=== PATIENT | male | born 1980 | race American Indian/Alaskan Native ===

== ENCOUNTER 2017-02-21 04:09 | Emergency (ER) | payer MEDICAID ==
[2017-02-21 04:10] VITALS: BMI 65.1
--- NOTE | 2017-02-21 04:30 | C.PDOC ---
History Of Present Illness Patient is a 36 y/o male who presents to the ED with police for alleged agitated behavior. On arrival, patient admits to drinking alcohol this evening and states he will not be cooperative for medical evaluation and prefers to be restrained. Patient reports to be unaware as to why he was brought in; states he has a fever. No other physical complaints at this time. 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) Current Symptoms Are (Timing): Still Present Modifying Factor(s): Alcohol Associated Symptoms: Agitation Recent travel outside of the [place]: No Past Medical History Reviewed: Historical Data, Nursing Documentation, Vital Signs Vital Signs: Last Vital Signs Temp 98.4 F 02/21/17 06:00 Pulse 80 02/21/17 06:00 Resp 16 02/21/17 06:00 BP 113/73 02/21/17 06:00 Pulse Ox 97 02/21/17 06:00 - Medical History PMH: Asthma, Bipolar Disorder, Depression, Schizophrenia, Sleep Apnea Denies: Diabetes, Hepatitis, HIV, HTN, Chronic Kidney Disease, Seizures, Sexually Transmitted Disease Surgical History: No Surg Hx - [facility] Procedures GROUP PSYCHOTHERAPY (05/20/15) INDIVIDUAL PSYCHOTHERAPY, SUPPORTIVE (05/20/15) Family History: States: Unknown Family Hx - Social History Hx Tobacco Use: Yes Hx Alcohol Use: Yes Hx Substance Use: Yes - Immunization History Hx Tetanus Toxoid Vaccination: No Hx Influenza Vaccination: No Hx Pneumococcal Vaccination: No Review Of Systems Review Of Systems: ROS cannot be obtained secondary to pt's inabilty to answer questions. Physical Exam - Physical Exam Appears: Well, Non-toxic, No Acute Distress Skin: Normal Color, Warm, Dry, Other (no external evidence of trauma) Head: Atraumatic, Normacephalic Chest: Symmetrical, No Tenderness Cardiovascular: Rhythm Regular, No Murmur, Other (s1 and s2 WNL) Respiratory: Normal Breath Sounds, No Rales, No Rhonchi, No Wheezing Gastrointestinal/Abdominal: Soft, No Tenderness, Other (obese) Extremity: Normal ROM, No Deformity, Other (2+ pulses) Neurological/Psych: Oriented x3, No Normal Speech (slurred), Normal Cognition, Normal Motor, Normal Reflexes, Other (cooperative at times) ED Course And Treatment - Laboratory Results Result Diagrams: 02/21/17 06:40 02/21/17 06:40 Medical Decision Making Medical Decision Making: clinical impression: substance abuse violent behavior Plan: * Crisis notified * patient 1:1 * 4-point restraints placed on patient * to be released in stage-like fashion as sobriety increases * Pt seen by crisis who feels pt can be discharged.Dr Quinteros feels he is antisocial personality disorder,PCP intoxication.They will attemt to place him in a homeless halfway Disposition - Disposition Referrals: [facility] at [facility] [Outside] Disposition: HOME/ ROUTINE Disposition Time: 07:09 Condition: STABLE Instructions: Polysubstance Abuse (ED) Forms: [facility] (Slovak) - Scribe Statement The provider has reviewed the documentation as recorded by the Scribe Felipa Mars All medical record entries made by the Scribe were at my direction and personally dictated by me. I have reviewed the chart and agree that the record accurately reflects my personal performance of the history, physical exam, medical decision making, and the department course for this patient. I have also personally directed, reviewed, and agree with the discharge instructions and disposition.
[2017-02-21 06:22] VITALS: BP 113/73; PULSE 80; RESP 16; TEMP 98.4; O2SAT 97
[2017-02-21 06:43] LABS: BASO % 0.7 % (0.0-2.0); EOS % 0.6 % (0.0-4.0); HEMOGLOBIN 13.6 g/dL (12.0-18.0); LYMPH # 1.4 K/uL (1.0-4.3); LYMPH % 24.5 % (20.0-40.0); MEAN CELL VOLUME 97.1 fL (80.0-94.0); MEAN CORPUSCULAR HEMOGLOBIN 33.9 pg (27.0-31.0); MEAN CORPUSCULAR HGB CONC 34.9 g/dL (33.0-37.0); MONO # 0.4 K/uL (0.0-0.8); MONO % 7.5 % (0.0-10.0); NEUT # 3.7 K/uL (1.8-7.0); NEUT % 66.7 % (50.0-75.0); RBC 4.01 Mil/uL (4.40-5.90); WHITE BLOOD COUNT 5.6 K/uL (4.8-10.8)
[2017-02-21 06:49] LABS: SQUAMOUS EPITHIAL < 1 /hpf (0-5); URINE BILIRUBIN NEGATIVE (NEGATIVE); URINE BLOOD NEGATIVE (NEGATIVE); URINE CLARITY Clear (Clear); URINE COLOR Yellow (YELLOW); URINE GLUCOSE (UA) NORMAL (Normal); URINE LEUKOCYTE ESTERASE NEG Leu/uL (Negative); URINE NITRATE NEGATIVE (NEGATIVE); URINE PROTEIN NEGATIVE (NEGATIVE); URINE UROBILINOGEN NORMAL mg/dL (0.2-1.0)
[2017-02-21 07:00] LABS: ALB/GLOB RATIO 1.2 (1.0-2.1); ALBUMIN 4.1 g/dL (3.5-5.0); ALT/SGPT 43 U/L (21-72); AST/SGOT 86 U/L (17-59); BARBITURATES, UR NEGATIVE (NEGATIVE); BENZODIAZEPINES, UR NEGATIVE (NEGATIVE); BLOOD UREA NITROGEN 11 mg/dL (9-20); GFR AFRICAN-AMERICAN > 60; GFR NON-AFRICAN AMERICAN > 60; MAGNESIUM 1.9 mg/dL (1.6-2.3); OPIATES, UR NEGATIVE (NEGATIVE)
[2017-02-21 07:01] LABS: PHENCYCLIDINE, UR POSITIVE (NEGATIVE)
== END 2017-02-21 07:30 | disposition home or self-care (01) ==
LOC: C.ER 04:09
DX: F19.10 Other psychoactive substance abuse, uncomplicated (principal); R45.6 Violent behavior
CPT/HCPCS: 80053; 80320; 80324; 80345; 80346; 80349; 80353; 80358; 80361; 81001; 83735; 83992; 85025; 96372; 99283; J2060

== ENCOUNTER 2017-02-21 17:40 | Emergency (ER) | payer MEDICAID ==
[2017-02-21 17:40] VITALS: BMI 65.1
[2017-02-21 20:09] LABS: BASO % 0.6 % (0.0-2.0); EOS # 0.1 K/uL (0.0-0.7); EOS % 1.1 % (0.0-4.0); HEMOGLOBIN 12.8 g/dL (12.0-18.0); LYMPH # 1.9 K/uL (1.0-4.3); LYMPH % 35.4 % (20.0-40.0); MEAN CELL VOLUME 96.7 fL (80.0-94.0); MEAN CORPUSCULAR HEMOGLOBIN 33.4 pg (27.0-31.0); MEAN CORPUSCULAR HGB CONC 34.6 g/dL (33.0-37.0); MEAN PLATELET VOLUME 8.1 fL (7.2-11.7); MONO # 0.6 K/uL (0.0-0.8); NEUT # 2.7 K/uL (1.8-7.0); NEUT % 50.9 % (50.0-75.0); NRBC % 0.1 % (0.0-2.0); RBC 3.83 Mil/uL (4.40-5.90); WHITE BLOOD COUNT 5.3 K/uL (4.8-10.8)
[2017-02-21 20:27] LABS: ALB/GLOB RATIO 1.2 (1.0-2.1); ALBUMIN 3.9 g/dL (3.5-5.0); ALT/SGPT 45 U/L (21-72); AST/SGOT 115 U/L (17-59); BLOOD UREA NITROGEN 10 mg/dL (9-20); CALCIUM 8.5 mg/dl (8.6-10.4); GFR AFRICAN-AMERICAN > 60; GFR NON-AFRICAN AMERICAN > 60
[2017-02-21 20:36] LABS: ACETAMINOPHEN < 10.0 ug/mL (10.0-30.0); SALICYLATE < 1.0 mg/dL 1
[2017-02-21 22:45] LABS: URINE BACTERIA RARE (<OCC); URINE BILIRUBIN NEGATIVE (NEGATIVE); URINE BLOOD NEGATIVE (NEGATIVE); URINE CLARITY Clear (Clear); URINE COLOR Yellow (YELLOW); URINE GLUCOSE (UA) NORMAL (Normal); URINE LEUKOCYTE ESTERASE NEG Leu/uL (Negative); URINE NITRATE NEGATIVE (NEGATIVE); URINE PROTEIN NEGATIVE (NEGATIVE)
[2017-02-21 22:58] LABS: BARBITURATES, UR NEGATIVE (NEGATIVE); BENZODIAZEPINES, UR NEGATIVE (NEGATIVE); OPIATES, UR NEGATIVE (NEGATIVE)
[2017-02-21 23:20] LABS: PHENCYCLIDINE, UR POSITIVE (NEGATIVE)
--- NOTE | 2017-02-22 00:33 | C.PDOC ---
Time Seen by Provider: 02/21/17 17:56 Chief Complaint (Nursing): Psychiatric Evaluation History Per: Patient, EMS History/Exam Limitations: intoxication Onset/Duration Of Symptoms: Unknown Current Symptoms Are (Timing): Still Present Modifying Factor(s): Marijuana, Other (PCP) Severity: Moderate Associated Symptoms: Agitation Additional History Per: Prior Records Past Medical History Reviewed: Historical Data, Nursing Documentation, Vital Signs Vital Signs: Last Vital Signs Temp 97.9 F 02/21/17 17:44 Pulse 110 H 02/21/17 17:44 Resp 20 02/21/17 17:44 BP 173/123 H 02/21/17 17:44 Pulse Ox 99 02/22/17 00:33 - Medical History PMH: Asthma, Bipolar Disorder, Depression, HTN, Schizophrenia, Sleep Apnea - [facility] Procedures GROUP PSYCHOTHERAPY (05/20/15) INDIVIDUAL PSYCHOTHERAPY, SUPPORTIVE (05/20/15) Family History: States: Unknown Family Hx - Social History Hx Tobacco Use: Yes Hx Alcohol Use: Yes Hx Substance Use: Yes - Immunization History Hx Tetanus Toxoid Vaccination: No Hx Influenza Vaccination: No Hx Pneumococcal Vaccination: No Review Of Systems Review Of Systems: ROS cannot be obtained secondary to pt's inabilty to answer questions. (Pt is uncooperative) Physical Exam - Physical Exam Appears: Agitated Skin: Normal Color, Warm, Dry, No Rash Head: Atraumatic, Normacephalic Eye(s): bilateral: PERRL, Other (Nystagmus) Neck: Normal ROM, No Midline Cervical Tenderness, No Step Off Deformity, Supple Cardiovascular: Rhythm Regular Respiratory: Normal Breath Sounds, No Accessory Muscle Use Gastrointestinal/Abdominal: Soft, No Tenderness Extremity: Normal ROM Neurological/Psych: Inappropriate Response To Command, Other (Moving all extremities) ED Course And Treatment - Laboratory Results Result Diagrams: 02/21/17 20:04 02/21/17 20:04 Lab Interpretation: No Acute Changes O2 Sat by Pulse Oximetry: 99 Pulse Ox Interpretation: Normal Progress Note: Pt is medically stable for psychiatric evaluation and/or admission. Pt was evaluated by the coating line worker who d/w Dr. Rodrigues. They requested that pt be medicated with an antipsychotic. Disposition - Disposition Disposition Time: 00:54 Condition: STABLE - Clinical Impression Clinical Impression: PCP (phencyclidine) abuse, Agitation Physician Patient Turnover Patient Signed Over To: Sapira,Valdi Handoff Comments: to reassess and dispo pt after meds.
[2017-02-22 03:49] VITALS: RESP 18; O2SAT 99
[2017-02-22 05:27] VITALS: BP 120/74; PULSE 89; TEMP 98.1
== END 2017-02-22 05:30 | disposition home or self-care (01) ==
LOC: C.ER 17:40
DX: F16.10 Hallucinogen abuse, uncomplicated (principal); R45.1 Restlessness and agitation
CPT/HCPCS: 80053; 80320; 80324; 80329; 80345; 80346; 80349; 80353; 80358; 80361; 81001; 83992; 85025; 96372; 99285; J2060; J3486

== ENCOUNTER 2017-02-23 20:42 | Emergency (ER) | payer MEDICAID ==
[2017-02-23 20:43] VITALS: BMI 65.1
[2017-02-23 20:47] VITALS: RESP 20
--- NOTE | 2017-02-23 20:59 | C.PDOC ---
History Of Present Illness 36 y/o male brought by EMS to the ER for PCP use. Patient admits that he used PCP today. Patient states that he is paranoid. Of note, patient has visited [facility] many times in the past for PCP use. Chief Complaint (Nursing): Substance Abuse History Per: Patient History/Exam Limitations: no limitations Past Medical History Reviewed: Historical Data, Nursing Documentation, Vital Signs Vital Signs: Last Vital Signs Temp 98.2 F 02/23/17 20:45 Pulse 91 H 02/23/17 20:45 Resp 20 02/23/17 20:45 BP 124/89 02/23/17 20:45 Pulse Ox 100 02/23/17 21:01 - Medical History PMH: Asthma, Bipolar Disorder, Depression, HTN, Schizophrenia, Sleep Apnea Denies: Diabetes, Hepatitis, HIV, Chronic Kidney Disease, Seizures, Sexually Transmitted Disease Surgical History: No Surg Hx - [facility] Procedures GROUP PSYCHOTHERAPY (05/20/15) INDIVIDUAL PSYCHOTHERAPY, SUPPORTIVE (05/20/15) Family History: States: No Known Family Hx - Social History Hx Tobacco Use: Yes Hx Alcohol Use: Yes Hx Substance Use: Yes - Immunization History Hx Tetanus Toxoid Vaccination: No Hx Influenza Vaccination: No Hx Pneumococcal Vaccination: No Review Of Systems Except As Marked, All Systems Reviewed And Found Negative. Physical Exam - Physical Exam Appears: No Acute Distress Skin: Normal Color, Warm Head: Atraumatic, Normacephalic Eye(s): bilateral: Normal Inspection, PERRL Nose: Normal Oral Mucosa: Moist Neck: Supple Chest: Symmetrical Cardiovascular: Rhythm Regular Respiratory: Normal Breath Sounds, No Accessory Muscle Use Extremity: Normal ROM Neurological/Psych: Oriented x3, Normal Speech, Normal Cognition, Normal Motor, Normal Sensation ED Course And Treatment - Laboratory Results Result Diagrams: 02/23/17 21:07 02/23/17 21:33 O2 Sat by Pulse Oximetry: 100 (RA) Pulse Ox Interpretation: Normal Medical Decision Making Medical Decision Making: Plan: --Labs --Urinalysis Disposition Counseled Patient/Family Regarding: Diagnosis - Disposition Referrals: [facility] at [facility] [Outside] Disposition: HOME/ ROUTINE Disposition Time: 23:38 Condition: STABLE Instructions: Polysubstance Abuse (ED) Forms: [facility] (Tamazight) - POA Present On Arrival: None - Clinical Impression Clinical Impression: Substance abuse - Scribe Statement The provider has reviewed the documentation as recorded by the Mitzyibshari Herman Provider Attestation: All medical record entries made by the Mitzyibe were at my direction and personally dictated by me. I have reviewed the chart and agree that the record accurately reflects my personal performance of the history, physical exam, medical decision making, and the department course for this patient. I have also personally directed, reviewed, and agree with the discharge instructions and disposition.
[2017-02-23 21:15] LABS: BASO % 0.5 % (0.0-2.0); EOS # 0.1 K/uL (0.0-0.7); EOS % 1.1 % (0.0-4.0); LYMPH # 2.1 K/uL (1.0-4.3); LYMPH % 43.5 % (20.0-40.0); MEAN CELL VOLUME 97.9 fL (80.0-94.0); MEAN CORPUSCULAR HEMOGLOBIN 33.5 pg (27.0-31.0); MEAN CORPUSCULAR HGB CONC 34.2 g/dL (33.0-37.0); MEAN PLATELET VOLUME 8.3 fL (7.2-11.7); MONO # 0.7 K/uL (0.0-0.8); MONO % 14.1 % (0.0-10.0); NEUT % 40.8 % (50.0-75.0); NRBC % 0.1 % (0.0-2.0); RBC 3.88 Mil/uL (4.40-5.90); WHITE BLOOD COUNT 4.9 K/uL (4.8-10.8)
[2017-02-23 21:25] LABS: URINE BILIRUBIN NEGATIVE (NEGATIVE); URINE BLOOD NEGATIVE (NEGATIVE); URINE CLARITY Clear (Clear); URINE COLOR Yellow (YELLOW); URINE GLUCOSE (UA) NORMAL (Normal); URINE LEUKOCYTE ESTERASE NEG Leu/uL (Negative); URINE NITRATE NEGATIVE (NEGATIVE); URINE PROTEIN NEGATIVE (NEGATIVE)
[2017-02-23 21:36] LABS: BARBITURATES, UR NEGATIVE (NEGATIVE); BENZODIAZEPINES, UR NEGATIVE (NEGATIVE); OPIATES, UR NEGATIVE (NEGATIVE)
[2017-02-23 21:54] LABS: PHENCYCLIDINE, UR POSITIVE (NEGATIVE)
[2017-02-23 21:54] LABS: ALB/GLOB RATIO 1.2 (1.0-2.1); ALBUMIN 4.3 g/dL (3.5-5.0); ALT/SGPT 66 U/L (21-72); AST/SGOT 140 U/L (17-59); BLOOD UREA NITROGEN 8 mg/dL (9-20); CALCIUM 9.4 mg/dl (8.6-10.4); GFR AFRICAN-AMERICAN > 60; GFR NON-AFRICAN AMERICAN > 60
[2017-02-23 23:57] VITALS: BP 126/74; PULSE 68; TEMP 97.2; O2SAT 96
== END 2017-02-23 23:54 | disposition home or self-care (01) ==
LOC: C.ER 20:42
DX: F19.10 Other psychoactive substance abuse, uncomplicated (principal)

== ENCOUNTER 2017-02-25 19:37 | Emergency (ER) | payer MEDICAID ==
[2017-02-25 19:37] VITALS: BMI 65.1
[2017-02-25 20:50] LABS: BASO # 0.1 K/uL (0.0-0.2); BASO % 1.1 % (0.0-2.0); EOS # 0.1 K/uL (0.0-0.7); EOS % 1.4 % (0.0-4.0); HEMOGLOBIN 12.8 g/dL (12.0-18.0); LYMPH # 2.2 K/uL (1.0-4.3); LYMPH % 42.8 % (20.0-40.0); MEAN CELL VOLUME 98.4 fL (80.0-94.0); MEAN CORPUSCULAR HEMOGLOBIN 33.9 pg (27.0-31.0); MEAN CORPUSCULAR HGB CONC 34.4 g/dL (33.0-37.0); MEAN PLATELET VOLUME 8.4 fL (7.2-11.7); MONO # 0.6 K/uL (0.0-0.8); MONO % 11.5 % (0.0-10.0); NEUT # 2.3 K/uL (1.8-7.0); NEUT % 43.2 % (50.0-75.0); NRBC % 0.1 % (0.0-2.0); RBC 3.77 Mil/uL (4.40-5.90); RED CELL DISTRIBUTION WIDTH 13.2 % (11.5-14.5); WHITE BLOOD COUNT 5.2 K/uL (4.8-10.8)
[2017-02-25 20:54] LABS: URINE BACTERIA RARE (<OCC); URINE BILIRUBIN NEGATIVE (NEGATIVE); URINE BLOOD NEGATIVE (NEGATIVE); URINE CLARITY Clear (Clear); URINE COLOR Yellow (YELLOW); URINE GLUCOSE (UA) NORMAL (Normal); URINE LEUKOCYTE ESTERASE NEG Leu/uL (Negative); URINE NITRATE NEGATIVE (NEGATIVE); URINE PROTEIN NEGATIVE (NEGATIVE)
[2017-02-25 21:02] LABS: ACETAMINOPHEN < 10.0 ug/mL (10.0-30.0); SALICYLATE < 1.0 mg/dL 1
[2017-02-25 21:04] LABS: ALB/GLOB RATIO 1.2 (1.0-2.1); ALT/SGPT 59 U/L (21-72); AST/SGOT 63 U/L (17-59); BLOOD UREA NITROGEN 10 mg/dL (9-20); CALCIUM 9.1 mg/dl (8.6-10.4); GFR AFRICAN-AMERICAN > 60; GFR NON-AFRICAN AMERICAN > 60
[2017-02-25 21:07] LABS: BARBITURATES, UR NEGATIVE (NEGATIVE); BENZODIAZEPINES, UR NEGATIVE (NEGATIVE); OPIATES, UR NEGATIVE (NEGATIVE); PHENCYCLIDINE, UR POSITIVE (NEGATIVE)
--- NOTE | 2017-02-25 22:46 | C.PDOC ---
Time Seen by Provider: 02/25/17 20:31 Chief Complaint (Nursing): Psychiatric Evaluation History Per: Patient, EMS History/Exam Limitations: clinical condition, intoxication Onset/Duration Of Symptoms: Days Current Symptoms Are (Timing): Still Present Suicide/Self Injury Attempted (Context): None Modifying Factor(s): Marijuana, Other (PCP) Severity: Moderate Associated Symptoms: Suicidal Thoughts Additional History Per: Prior Records Past Medical History Reviewed: Historical Data, Nursing Documentation, Vital Signs Vital Signs: Last Vital Signs Temp 97.6 F 02/25/17 19:45 Pulse 70 02/25/17 19:45 Resp 20 02/25/17 19:45 BP 102/68 02/25/17 19:45 Pulse Ox 99 02/25/17 22:47 - Medical History PMH: Asthma, Bipolar Disorder, Depression, HTN, Schizophrenia, Sleep Apnea - [facility] Procedures GROUP PSYCHOTHERAPY (05/20/15) INDIVIDUAL PSYCHOTHERAPY, SUPPORTIVE (05/20/15) Family History: States: Unknown Family Hx - Social History Hx Tobacco Use: Yes Hx Alcohol Use: Yes Hx Substance Use: Yes - Immunization History Hx Tetanus Toxoid Vaccination: No Hx Influenza Vaccination: No Hx Pneumococcal Vaccination: No Review Of Systems Constitutional: Negative for: Fever Cardiovascular: Negative for: Chest Pain Respiratory: Negative for: Shortness of Breath Gastrointestinal: Negative for: Vomiting, Abdominal Pain Musculoskeletal: Negative for: Neck Pain Neurological: Negative for: Weakness, Numbness Physical Exam - Physical Exam Appears: Non-toxic, No Acute Distress Skin: Normal Color, Warm, Dry Head: Atraumatic Eye(s): bilateral: PERRL Neck: Normal ROM, Supple Cardiovascular: Rhythm Regular Respiratory: Normal Breath Sounds, No Accessory Muscle Use Gastrointestinal/Abdominal: Soft, No Tenderness Extremity: Normal ROM Neurological/Psych: Oriented x3, Normal Motor, Normal Sensation ED Course And Treatment - Laboratory Results Result Diagrams: 02/25/17 20:46 02/25/17 20:46 Lab Interpretation: No Acute Changes O2 Sat by Pulse Oximetry: 99 Pulse Ox Interpretation: Normal Progress Note: Pt is medically stable for psychiatric evaluation and/or admission. 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
[2017-02-26 06:44] VITALS: BP 124/64; PULSE 61; RESP 20; TEMP 97.8; O2SAT 100
== END 2017-02-26 07:05 | disposition home or self-care (01) ==
LOC: C.ER 19:37
DX: F16.10 Hallucinogen abuse, uncomplicated (principal); R45.851 Suicidal ideations
CPT/HCPCS: 80053; 80164; 80178; 80320; 80324; 80329; 80345; 80346; 80349; 80353; 80358; 80361; 81001; 83992; 85025; 96372; 99285; J2060; J3486

== ENCOUNTER 2017-03-05 04:11 | Emergency (ER) | payer MEDICAID ==
[2017-03-05 04:12] VITALS: BMI 65.1
[2017-03-05 04:44] VITALS: RESP 16; TEMP 98; O2SAT 98
--- NOTE | 2017-03-05 04:56 | C.PDOC ---
History Of Present Illness Patient is a 36 y/o male who presents to the ED stating that he is homeless and need a place to sleep. Denies any drug use today. Pleasant and cooperative. Denies any suicidal or homicidal ideation. No other physical complaints at this time. Time Seen by Provider: 03/05/17 04:53 Chief Complaint (Nursing): Pain, Chronic History Per: Patient History/Exam Limitations: no limitations Onset/Duration Of Symptoms: Days Current Symptoms Are (Timing): Still Present Severity: None Reports Recently: Seen In ED, Treated By A Physician Recent travel outside of the [place] States: No Past Medical History Reviewed: Historical Data, Nursing Documentation, Vital Signs Vital Signs: Last Vital Signs Temp 98 F 03/05/17 04:42 Pulse 70 03/05/17 04:42 Resp 16 03/05/17 04:42 BP 140/80 03/05/17 04:42 Pulse Ox 98 03/05/17 05:08 - Medical History PMH: Asthma, Bipolar Disorder, Depression, HTN, Schizophrenia, Sleep Apnea Denies: Diabetes, Hepatitis, HIV, Chronic Kidney Disease, Seizures, Sexually Transmitted Disease Surgical History: No Surg Hx - [facility] Procedures GROUP PSYCHOTHERAPY (05/20/15) INDIVIDUAL PSYCHOTHERAPY, SUPPORTIVE (05/20/15) Family History: States: No Known Family Hx - Social History Hx Tobacco Use: Yes Hx Alcohol Use: Yes Hx Substance Use: Yes - Immunization History Hx Tetanus Toxoid Vaccination: No Hx Influenza Vaccination: No Hx Pneumococcal Vaccination: No Review Of Systems Constitutional: Negative for: Fever, Chills Cardiovascular: Negative for: Chest Pain Respiratory: Negative for: Shortness of Breath Gastrointestinal: Negative for: Abdominal Pain Neurological: Negative for: Weakness Psych: Negative for: Suicidal ideation Physical Exam - Physical Exam Appears: Non-toxic, No Acute Distress Skin: Warm, Dry Head: Normacephalic Eye(s): bilateral: Normal Inspection Oral Mucosa: Moist Neck: Supple Cardiovascular: Rhythm Regular Respiratory: No Rales, No Rhonchi Gastrointestinal/Abdominal: No Tenderness Extremity: Normal ROM Neurological/Psych: Oriented x3, Normal Speech Gait: Steady ED Course And Treatment O2 Sat by Pulse Oximetry: 98 Pulse Ox Interpretation: Normal Progress Note: Patient under ED obs until morning. list of homeless shelters given Reevaluation Time: 06:15 Reassessment Condition: Improved Disposition Counseled Patient/Family Regarding: Studies Performed, Diagnosis, Need For Followup - Disposition Referrals: [facility] at [facility] [Outside] Disposition: HOME/ ROUTINE Disposition Time: 04:57 Condition: FAIR Forms: [facility] (Sami), General Discharge Instructions - Clinical Impression Clinical Impression: Polysubstance abuse - Scribe Statement The provider has reviewed the documentation as recorded by the Scribe Felipa Mars All medical record entries made by the Scribe were at my direction and personally dictated by me. I have reviewed the chart and agree that the record accurately reflects my personal performance of the history, physical exam, medical decision making, and the department course for this patient. I have also personally directed, reviewed, and agree with the discharge instructions and disposition.
[2017-03-05 06:38] VITALS: BP 130/80; PULSE 75
== END 2017-03-05 06:37 | disposition home or self-care (01) ==
LOC: C.ER 04:11
DX: F19.10 Other psychoactive substance abuse, uncomplicated (principal); Z59.0 Homelessness; I10 Essential (primary) hypertension; F20.9 Schizophrenia, unspecified; Z72.0 Tobacco use

== ENCOUNTER 2017-03-24 06:02 | Emergency (ER) | payer MEDICAID ==
[2017-03-24 06:02] VITALS: BMI 25.1
[2017-03-24 06:12] VITALS: BP 124/73; PULSE 90; RESP 16; TEMP 97.9; O2SAT 98
--- NOTE | 2017-03-24 07:50 | C.PDOC ---
History Of Present Illness 36 y/o male presents to the ER requesting Detox from alcohol, methadon, crystal meth, PCP, and marijuana. Patient has no medical complaints at this time. Time Seen by Provider: 03/24/17 07:32 Chief Complaint (Nursing): Substance Abuse History Per: Patient History/Exam Limitations: no limitations Past Medical History Reviewed: Historical Data, Nursing Documentation, Vital Signs Vital Signs: Last Vital Signs Temp 97.9 F 03/24/17 06:10 Pulse 90 03/24/17 06:10 Resp 16 03/24/17 06:10 BP 124/73 03/24/17 06:10 Pulse Ox 98 03/24/17 08:26 - Medical History PMH: Asthma, Bipolar Disorder, Depression, HTN, Schizophrenia, Sleep Apnea Denies: Diabetes, Hepatitis, HIV, Chronic Kidney Disease, Seizures, Sexually Transmitted Disease Other Surgeries: Hx of surgeries - [facility] Procedures GROUP PSYCHOTHERAPY (05/20/15) INDIVIDUAL PSYCHOTHERAPY, SUPPORTIVE (05/20/15) Family History: States: No Known Family Hx - Social History Hx Tobacco Use: Yes Hx Alcohol Use: Yes Hx Substance Use: Yes (PCP) - Immunization History Hx Tetanus Toxoid Vaccination: No Hx Influenza Vaccination: No Hx Pneumococcal Vaccination: No Review Of Systems Except As Marked, All Systems Reviewed And Found Negative. Physical Exam - Physical Exam Appears: No Acute Distress Skin: Normal Color, Warm Head: Atraumatic, Normacephalic Eye(s): bilateral: Normal Inspection Nose: Normal Oral Mucosa: Moist Neck: Supple Chest: Symmetrical Cardiovascular: Rhythm Regular Respiratory: Normal Breath Sounds, No Accessory Muscle Use, No Rales, No Rhonchi , No Wheezing Extremity: Normal ROM Neurological/Psych: Oriented x3, Normal Speech, Normal Motor, Normal Sensation ED Course And Treatment O2 Sat by Pulse Oximetry: 98 (RA) Pulse Ox Interpretation: Normal Progress Note: dust box worker Vasiliy spoke to the patient and explained to him that there are no Detox beds availabe at this moment. Patient was given referral for outpatient detox and list of outpatient detox facilities. Disposition - Disposition Disposition: HOME/ ROUTINE Disposition Time: 07:49 Condition: STABLE Additional Instructions: Follow up in Outpatient detox as instructed. Return to ED if feel worse. 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 - Scribe Statement The provider has reviewed the documentation as recorded by the Scribe Kate Herman Provider Attestation All medical record entries made by the Humberto were at my direction and personally dictated by me. I have reviewed the chart and agree that the record accurately reflects my personal performance of the history, physical exam, medical decision making, and the department course for this patient. I have also personally directed, reviewed, and agree with the discharge instructions and disposition.
== END 2017-03-24 08:06 | disposition home or self-care (01) ==
LOC: C.ER 06:02
DX: F19.10 Other psychoactive substance abuse, uncomplicated (principal)

== ENCOUNTER 2017-04-03 04:48 | Emergency (ER) | payer MEDICAID ==
[2017-04-03 04:49] VITALS: BMI 25.1
[2017-04-03 05:02] VITALS: BP 148/89; PULSE 84; RESP 20; TEMP 98; O2SAT 98
--- NOTE | 2017-04-03 05:38 | C.PDOC ---
History Of Present Illness 36 year old male presents to the ED for psychiatric evaluation. Patient initially reports that he has been noncompliant with his psych medications for the past 6 months. However, patient admits to nursing staff that he took an ambulance to [facility] because he knew he would be able to take a shower here. Shortly after stating this, the patient locked himself in the bathroom. Patient refusing to be examined. He denies suicidal or homicidal ideation. Time Seen by Provider: 04/03/17 05:34 Chief Complaint (Nursing): Psychiatric Evaluation History Per: Patient History/Exam Limitations: other (Refusing to be examined) Onset/Duration Of Symptoms: Unknown Past Medical History Reviewed: Historical Data, Nursing Documentation, Vital Signs Vital Signs: Last Vital Signs Temp 98 F 04/03/17 04:55 Pulse 84 04/03/17 04:55 Resp 20 04/03/17 04:55 BP 148/89 04/03/17 04:55 Pulse Ox 98 04/03/17 05:46 - Medical History PMH: Asthma, Bipolar Disorder, Depression, HTN, Schizophrenia, Sleep Apnea Denies: Diabetes, Hepatitis, HIV, Chronic Kidney Disease, Seizures, Sexually Transmitted Disease - [facility] Procedures GROUP PSYCHOTHERAPY (05/20/15) INDIVIDUAL PSYCHOTHERAPY, SUPPORTIVE (05/20/15) Family History: States: No Known Family Hx - Social History Hx Tobacco Use: Yes Hx Alcohol Use: Yes Hx Substance Use: Yes (PCP) - Immunization History Hx Tetanus Toxoid Vaccination: No Hx Influenza Vaccination: No Hx Pneumococcal Vaccination: No Review Of Systems Review Of Systems: ROS cannot be obtained secondary to pt's inabilty to answer questions. (Patient refusing to answer questions/be examined) ED Course And Treatment O2 Sat by Pulse Oximetry: 98 Pulse Ox Interpretation: Normal Progress Note: Patient refusing to be examined. Disposition Counseled Patient/Family Regarding: Need For Followup - Disposition Referrals: [facility] at [facility] [Outside] Disposition: HOME/ ROUTINE Disposition Time: 06:09 Condition: FAIR Forms: [facility] (Maltese), General Discharge Instructions - Clinical Impression Clinical Impression: Malingering - Scribe Statement The provider has reviewed the documentation as recorded by the Scribe (Pro Mccoy) Provider Attestation: All medical record entries made by the Scribe were at my direction and personally dictated by me. I have reviewed the chart and agree that the record accurately reflects my personal performance of the history, physical exam, medical decision making, and the department course for this patient. I have also personally directed, reviewed, and agree with the discharge instructions and disposition.
== END 2017-04-03 06:15 | disposition home or self-care (01) ==
LOC: C.ER 04:48
DX: Z76.5 Malingerer [conscious simulation] (principal); I10 Essential (primary) hypertension; Z72.0 Tobacco use

== ENCOUNTER 2017-07-11 23:38 | Emergency (ER) | payer MEDICAID ==
[2017-07-11 23:38] VITALS: BMI 41.2
[2017-07-11 23:51] VITALS: BP 101/67; PULSE 79; RESP 16; TEMP 98.7; O2SAT 97
--- NOTE | 2017-07-12 00:10 | C.PDOC ---
History Of Present Illness 36 year old male presents to the ED requesting detox for PCP abuse. Patient was seen earlier today at [facility] with similar complaints. Patient was informed that no detox beds were available, patient refused to be examined and left. Time Seen by Provider: 07/12/17 00:09 Chief Complaint (Nursing): Substance Abuse History Per: Patient History/Exam Limitations: no limitations Onset/Duration Of Symptoms: Hrs Current Symptoms Are (Timing): Still Present Suicide/Self Injury Attempted (Context): None Modifying Factor(s): Other (PCP) Associated Symptoms: denies: Depression, Suicidal Thoughts, Suicidal Plan Recent travel outside of the [place]: No Additional History Per: Patient Past Medical History Reviewed: Historical Data, Nursing Documentation, Vital Signs Vital Signs: Last Vital Signs Temp 98.7 F 07/11/17 23:49 Pulse 79 07/11/17 23:49 Resp 16 07/11/17 23:49 BP 101/67 07/11/17 23:49 Pulse Ox 97 07/12/17 00:10 - Medical History PMH: Asthma, Bipolar Disorder, Depression, HTN, Schizophrenia, Sleep Apnea Denies: Diabetes, Hepatitis, HIV, Chronic Kidney Disease, Seizures, Sexually Transmitted Disease Surgical History: No Surg Hx - [facility] Procedures GROUP PSYCHOTHERAPY (05/20/15) INDIVIDUAL PSYCHOTHERAPY, SUPPORTIVE (05/20/15) Family History: States: Unknown Family Hx - Social History Hx Tobacco Use: Yes Hx Alcohol Use: Yes Hx Substance Use: Yes (PCP) - Immunization History Hx Tetanus Toxoid Vaccination: No Hx Influenza Vaccination: No Hx Pneumococcal Vaccination: No Review Of Systems Constitutional: Negative for: Fever, Chills Cardiovascular: Negative for: Chest Pain Respiratory: Negative for: Shortness of Breath Gastrointestinal: Negative for: Nausea, Vomiting Psych: Negative for: Depression, Suicidal ideation Physical Exam - Physical Exam Appears: Non-toxic, No Acute Distress Skin: Warm, Dry, Other (no external signs of trauma) Head: Normacephalic Eye(s): bilateral: Normal Inspection Neck: Supple Chest: Symmetrical Extremity: Bilateral: Atraumatic, Normal ROM Neurological/Psych: Oriented x3, Normal Speech Gait: Steady Additional Physical Exam Comments: Upon learning no detox beds were available patient refused examination and left the ED ED Course And Treatment O2 Sat by Pulse Oximetry: 97 (ON RA) Pulse Ox Interpretation: Normal Disposition Counseled Patient/Family Regarding: Studies Performed, Diagnosis, Need For Followup - Disposition Referrals: [facility] [Outside] Disposition: HOME/ ROUTINE Disposition Time: 00:09 Condition: FAIR Instructions: Polysubstance Abuse (DC) Forms: [facility] (Croatian) - Clinical Impression Clinical Impression: Drug abuse - Scribe Statement The provider has reviewed the documentation as recorded by the Scribe Nathan Chowdary All medical record entries made by the Scribe were at my direction and personally dictated by me. I have reviewed the chart and agree that the record accurately reflects my personal performance of the history, physical exam, medical decision making, and the department course for this patient. I have also personally directed, reviewed, and agree with the discharge instructions and disposition.
== END 2017-07-12 00:09 | disposition home or self-care (01) ==
LOC: C.ER 23:38
DX: F19.10 Other psychoactive substance abuse, uncomplicated (principal)

== ENCOUNTER 2017-08-14 01:18 | Emergency (ER) | payer MEDICAID ==
[2017-08-14 01:18] VITALS: BMI 41.2
[2017-08-14 02:22] LABS: BASO % 0.3 % (0.0-2.0); HEMOGLOBIN 12.4 g/dL (12.0-18.0); LYMPH # 1.4 K/uL (1.0-4.3); LYMPH % 30.2 % (20.0-40.0); MEAN CELL VOLUME 98.9 fL (80.0-94.0); MEAN CORPUSCULAR HEMOGLOBIN 34.5 pg (27.0-31.0); MEAN CORPUSCULAR HGB CONC 34.9 g/dL (33.0-37.0); MEAN PLATELET VOLUME 8.1 fL (7.2-11.7); MONO # 0.6 K/uL (0.0-0.8); MONO % 13.8 % (0.0-10.0); NEUT # 2.5 K/uL (1.8-7.0); NEUT % 54.7 % (50.0-75.0); NRBC % 0.1 % (0.0-2.0); RBC 3.59 Mil/uL (4.40-5.90); RED CELL DISTRIBUTION WIDTH 13.7 % (11.5-14.5); WHITE BLOOD COUNT 4.6 K/uL (4.8-10.8)
[2017-08-14 02:24] LABS: URINE BILIRUBIN NEGATIVE (NEGATIVE); URINE BLOOD NEGATIVE (NEGATIVE); URINE CLARITY Clear (Clear); URINE COLOR Yellow (YELLOW); URINE GLUCOSE (UA) NORMAL (Normal); URINE LEUKOCYTE ESTERASE NEG Leu/uL (Negative); URINE PROTEIN NEGATIVE (NEGATIVE)
[2017-08-14 02:36] LABS: ALB/GLOB RATIO 1.2 (1.0-2.1); ALBUMIN 3.6 g/dL (3.5-5.0); ALT/SGPT 31 U/L (21-72); AST/SGOT 28 U/L (17-59); BLOOD UREA NITROGEN 8 mg/dL (9-20); CALCIUM 8.8 mg/dl (8.6-10.4); GFR AFRICAN-AMERICAN > 60; GFR NON-AFRICAN AMERICAN > 60
[2017-08-14 02:38] LABS: BARBITURATES, UR NEGATIVE (NEGATIVE); BENZODIAZEPINES, UR NEGATIVE (NEGATIVE); OPIATES, UR NEGATIVE (NEGATIVE)
[2017-08-14 02:42] LABS: PHENCYCLIDINE, UR POSITIVE (NEGATIVE)
--- NOTE | 2017-08-14 03:05 | C.PDOC ---
History Of Present Illness 37 year old male presents to the ED for evaluation. Patient reports feeling depressed and thinking about hurting himself. Patient has no specific plans. Patient denies HI, hallucinations, CP, SOB, abd pain. Time Seen by Provider: 08/14/17 02:07 Chief Complaint (Nursing): Psychiatric Evaluation History Per: Patient History/Exam Limitations: no limitations Onset/Duration Of Symptoms: Hrs Current Symptoms Are (Timing): Still Present Suicide/Self Injury Attempted (Context): None Associated Symptoms: Depression, Suicidal Thoughts. denies: Suicidal Plan Involuntary Hold By: None Recent travel outside of the [place]: No Additional History Per: Patient, EMS Past Medical History Reviewed: Historical Data, Nursing Documentation, Vital Signs Vital Signs: Last Vital Signs Temp 98.5 F 08/14/17 03:38 Pulse 82 08/14/17 03:38 Resp 14 08/14/17 03:38 BP 130/72 08/14/17 03:38 Pulse Ox 95 08/14/17 05:06 - Medical History PMH: Asthma, Bipolar Disorder, Depression, HTN, Schizophrenia, Sleep Apnea Denies: Diabetes, Hepatitis, HIV, Chronic Kidney Disease, Seizures, Sexually Transmitted Disease Surgical History: No Surg Hx - [facility] Procedures GROUP PSYCHOTHERAPY (05/20/15) INDIVIDUAL PSYCHOTHERAPY, SUPPORTIVE (05/20/15) Family History: States: Unknown Family Hx - Social History Hx Tobacco Use: Yes Hx Alcohol Use: Yes Hx Substance Use: Yes (PCP) - Immunization History Hx Tetanus Toxoid Vaccination: No Hx Influenza Vaccination: No Hx Pneumococcal Vaccination: No Review Of Systems Constitutional: Negative for: Fever, Chills Cardiovascular: Negative for: Chest Pain, Palpitations Gastrointestinal: Negative for: Nausea, Vomiting Skin: Negative for: Rash Psych: Positive for: Depression, Suicidal ideation Physical Exam - Physical Exam Appears: Non-toxic, No Acute Distress Skin: Normal Color, Warm, Dry Head: Atraumatic, Normacephalic Eye(s): bilateral: Normal Inspection Oral Mucosa: Moist Neck: Normal ROM, Supple Chest: Symmetrical Cardiovascular: Rhythm Regular Respiratory: Normal Breath Sounds, No Rales, No Rhonchi, No Wheezing Gastrointestinal/Abdominal: Soft, No Tenderness, No Guarding, No Rebound Extremity: Normal ROM, No Tenderness, No Swelling Neurological/Psych: Oriented x3, Normal Speech Gait: Steady ED Course And Treatment - Laboratory Results Result Diagrams: 08/14/17 02:19 08/14/17 02:19 O2 Sat by Pulse Oximetry: 95 (On RA) Pulse Ox Interpretation: Normal Progress Note: Pt is medically cleared for psych. Pt was screened by [facility] crisis counselor and case reviewed by Dr Inman - space operations psych who recommended that due to pt frequent visits to this ED and other [facility] ED, and h/o of PCP use leading to violent behavior towards staff in the past- pt does not meet the criteria for admission at this time. Pt was informed of this by crisis and was d /c from ED with no complications. Pt will follow up in clini or with pMD Disposition Counseled Patient/Family Regarding: Diagnosis, Need For Followup - Disposition Referrals: [facility] [Outside] Disposition: HOME/ ROUTINE Disposition Time: 03:23 Condition: STABLE Instructions: Drug Abuse and Drug Addiction (DC) Forms: [employer] (Bermudian) - Clinical Impression Clinical Impression: Schizophrenia, Cannabis abuse, Homelessness - PA / RESIDENTIAL FINISH CARPENTER / Resident Statement MD/DO has reviewed & agrees with the documentation as recorded. - Scribe Statement The provider has reviewed the documentation as recorded by the Scribe Nathan Chowdary All medical record entries made by the Scribe were at my direction and personally dictated by me. I have reviewed the chart and agree that the record accurately reflects my personal performance of the history, physical exam, medical decision making, and the department course for this patient. I have also personally directed, reviewed, and agree with the discharge instructions and disposition.
[2017-08-14 03:41] VITALS: BP 130/72; PULSE 82; RESP 14; TEMP 98.5
[2017-08-14 05:06] VITALS: O2SAT 95
== END 2017-08-14 03:41 | disposition home or self-care (01) ==
LOC: C.ER 01:18
DX: F20.9 Schizophrenia, unspecified (principal); F12.10 Cannabis abuse, uncomplicated; Z59.0 Homelessness

== ENCOUNTER 2017-08-14 05:08 | Emergency (ER) | payer MEDICAID ==
[2017-08-14 05:08] VITALS: BMI 41.2
[2017-08-14 05:31] VITALS: BP 102/62; PULSE 98; RESP 16; TEMP 98.5; O2SAT 97
--- NOTE | 2017-08-14 05:44 | C.PDOC ---
History Of Present Illness 37 year old male presents to the ED for the second time today. Patient states he returns to the ED because he was not return all of his properties. Patient refused to be examined and seen by crisis. Patient initially states he was here for suicidal ideations but admits smoking PCP. Patient states his PCP use does not affect his suicidal ideations. Patient is very argumentative and confrontational. Patient does not allow for further questioning, refused examination. Chief Complaint (Nursing): Psychiatric Evaluation History Per: Patient History/Exam Limitations: intoxication Onset/Duration Of Symptoms: Hrs Current Symptoms Are (Timing): Still Present Suicide/Self Injury Attempted (Context): None Modifying Factor(s): Other (PCP) Associated Symptoms: Anger, Agitation, Suicidal Thoughts Recent travel outside of the [place]: No Additional History Per: Patient, EMS Past Medical History Reviewed: Historical Data, Nursing Documentation, Vital Signs Vital Signs: Last Vital Signs Temp 98.5 F 08/14/17 05:09 Pulse 98 H 08/14/17 05:09 Resp 16 08/14/17 05:09 BP 102/62 08/14/17 05:09 Pulse Ox 97 08/14/17 05:46 - Medical History PMH: Asthma, Bipolar Disorder, Depression, HTN, Schizophrenia, Sleep Apnea Denies: Diabetes, Hepatitis, HIV, Chronic Kidney Disease, Seizures, Sexually Transmitted Disease Surgical History: No Surg Hx - [facility] Procedures GROUP PSYCHOTHERAPY (05/20/15) INDIVIDUAL PSYCHOTHERAPY, SUPPORTIVE (05/20/15) Family History: States: Unknown Family Hx - Social History Hx Tobacco Use: Yes Hx Alcohol Use: Yes Hx Substance Use: Yes (PCP) - Immunization History Hx Tetanus Toxoid Vaccination: No Hx Influenza Vaccination: No Hx Pneumococcal Vaccination: No Review Of Systems Review Of Systems: ROS cannot be obtained secondary to pt's inabilty to answer questions. 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 Inman who due to patient's aggressive behavior is not fit for admission to the psych unit. Patient mcrae snot meet the criteria for admission due to multiple prior altercations in other facilities. Disposition - Disposition Disposition: LEFT W/O BEING SEEN - ER ONLY Disposition Time: 06:46 Condition: FAIR Forms: [employer] (Spanish) - Clinical Impression Clinical Impression: Manic bipolar I disorder, Homelessness - Scribe Statement The provider has reviewed the documentation as recorded by the Scribe Nathan Chowdary All medical record entries made by the Scribe were at my direction and personally dictated by me. I have reviewed the chart and agree that the record accurately reflects my personal performance of the history, physical exam, medical decision making, and the department course for this patient. I have also personally directed, reviewed, and agree with the discharge instructions and disposition.
== END 2017-08-14 05:09 | disposition left against medical advice (07) ==
LOC: C.ER 05:08
DX: Z02.89 Encounter for other administrative examinations (principal); F31.9 Bipolar disorder, unspecified; Z59.0 Homelessness

== ENCOUNTER 2017-08-27 00:51 | Emergency (ER) | payer MEDICAID ==
[2017-08-27 00:51] VITALS: BMI 41.2
[2017-08-27 00:58] VITALS: BP 115/72; PULSE 71; RESP 22; TEMP 98.5; O2SAT 98
--- NOTE | 2017-08-27 01:20 | C.PDOC ---
History Of Present Illness 37 year old male presents to the ED under police custody for evaluation of verbalized suicidal ideation. Patient denies homicidal ideation and has no physical complaints at this time. Chief Complaint (Nursing): Psychiatric Evaluation History Per: Patient History/Exam Limitations: no limitations Onset/Duration Of Symptoms: Hrs Current Symptoms Are (Timing): Still Present Suicide/Self Injury Attempted (Context): None Associated Symptoms: Suicidal Thoughts Recent travel outside of the [place]: No Additional History Per: Patient, Law Enforcement Past Medical History Reviewed: Historical Data, Nursing Documentation, Vital Signs Vital Signs: Last Vital Signs Temp 98.5 F 08/27/17 00:57 Pulse 71 08/27/17 00:57 Resp 22 08/27/17 00:57 BP 115/72 08/27/17 00:57 Pulse Ox 98 08/27/17 01:24 - Medical History PMH: Asthma, Bipolar Disorder, Depression, HTN, Schizophrenia, Sleep Apnea Denies: Diabetes, Hepatitis, HIV, Chronic Kidney Disease, Seizures, Sexually Transmitted Disease Surgical History: No Surg Hx - [facility] Procedures GROUP PSYCHOTHERAPY (05/20/15) INDIVIDUAL PSYCHOTHERAPY, SUPPORTIVE (05/20/15) Family History: States: Unknown Family Hx - Social History Hx Tobacco Use: Yes Hx Alcohol Use: Yes Hx Substance Use: Yes (PCP) - Immunization History Hx Tetanus Toxoid Vaccination: No Hx Influenza Vaccination: No Hx Pneumococcal Vaccination: No Review Of Systems Psych: Positive for: Suicidal ideation Physical Exam - Physical Exam Appears: Non-toxic, No Acute Distress Skin: Normal Color, Warm, Dry Head: Atraumatic, Normacephalic Eye(s): bilateral: Normal Inspection Oral Mucosa: Moist Neck: Supple Chest: Symmetrical, No Deformity Cardiovascular: Rhythm Regular Respiratory: Normal Breath Sounds Extremity: Normal ROM Neurological/Psych: Normal Speech, Normal Cognition ED Course And Treatment - Laboratory Results Result Diagrams: 08/27/17 01:26 08/27/17 01:26 O2 Sat by Pulse Oximetry: 98 (on RA) Pulse Ox Interpretation: Normal Progress Note: Bloodwork and urinalysis ordered and reviewed. Disposition Discussed With : Micthel Rodrigues Counseled Patient/Family Regarding: Diagnosis - Disposition Referrals: [facility] [Outside] Disposition: HOME/ ROUTINE Disposition Time: 02:31 Condition: STABLE Instructions: Schizophrenia (DC) Forms: [employer] (Cymraes) - POA Present On Arrival: None - Clinical Impression Clinical Impression: Schizophrenia - Scribe Statement The provider has reviewed the documentation as recorded by the Scribe Provider Attestation: All medical record entries made by the Scribe were at my direction and personally dictated by me. I have reviewed the chart and agree that the record accurately reflects my personal performance of the history, physical exam, medical decision making, and the department course for this patient. I have also personally directed, reviewed, and agree with the discharge instructions and disposition.
[2017-08-27 01:30] LABS: BASO # 0.1 K/uL (0.0-0.2); EOS # 0.1 K/uL (0.0-0.7); EOS % 2.5 % (0.0-4.0); HEMOGLOBIN 12.9 g/dL (12.0-18.0); LYMPH # 2.4 K/uL (1.0-4.3); LYMPH % 40.6 % (20.0-40.0); MEAN CELL VOLUME 98.2 fL (80.0-94.0); MEAN CORPUSCULAR HEMOGLOBIN 33.6 pg (27.0-31.0); MEAN CORPUSCULAR HGB CONC 34.2 g/dL (33.0-37.0); MEAN PLATELET VOLUME 7.5 fL (7.2-11.7); MONO # 0.6 K/uL (0.0-0.8); MONO % 10.4 % (0.0-10.0); NEUT # 2.7 K/uL (1.8-7.0); NEUT % 45.5 % (50.0-75.0); NRBC % 0.1 % (0.0-2.0); RBC 3.83 Mil/uL (4.40-5.90); RED CELL DISTRIBUTION WIDTH 13.8 % (11.5-14.5); WHITE BLOOD COUNT 5.8 K/uL (4.8-10.8)
[2017-08-27 01:41] LABS: ALB/GLOB RATIO 1.4 (1.0-2.1); ALBUMIN 4.1 g/dL (3.5-5.0); ALT/SGPT 31 U/L (21-72); AST/SGOT 35 U/L (17-59); BLOOD UREA NITROGEN 13 mg/dL (9-20); CALCIUM 9.2 mg/dl (8.6-10.4); GFR AFRICAN-AMERICAN > 60; GFR NON-AFRICAN AMERICAN > 60
[2017-08-27 02:05] LABS: URINE BILIRUBIN NEGATIVE (NEGATIVE); URINE BLOOD NEGATIVE (NEGATIVE); URINE CLARITY Clear (Clear); URINE COLOR Yellow (YELLOW); URINE GLUCOSE (UA) NORMAL (Normal); URINE LEUKOCYTE ESTERASE NEG Leu/uL (Negative); URINE PROTEIN NEGATIVE (NEGATIVE)
[2017-08-27 02:19] LABS: BARBITURATES, UR NEGATIVE (NEGATIVE); BENZODIAZEPINES, UR NEGATIVE (NEGATIVE); OPIATES, UR NEGATIVE (NEGATIVE)
[2017-08-27 02:21] LABS: PHENCYCLIDINE, UR POSITIVE (NEGATIVE)
== END 2017-08-27 02:47 | disposition home or self-care (01) ==
LOC: C.ER 00:51
DX: F20.9 Schizophrenia, unspecified (principal)

== ENCOUNTER 2018-03-01 11:28 | Emergency (ER) | payer SELFPAY ==
[2018-03-01 11:35] VITALS: BMI 39.9
[2018-03-01 11:40] VITALS: RESP 18
[2018-03-01 13:38] LABS: BASO % 0.7 % (0.0-2.0); EOS # 0.1 K/uL (0.0-0.7); EOS % 1.4 % (0.0-4.0); HEMOGLOBIN 13.3 g/dL (12.0-18.0); LYMPH # 1.5 K/uL (1.0-4.3); LYMPH % 35.8 % (20.0-40.0); MEAN CORPUSCULAR HEMOGLOBIN 33.9 pg (27.0-31.0); MEAN CORPUSCULAR HGB CONC 33.8 g/dL (33.0-37.0); MONO # 0.5 K/uL (0.0-0.8); MONO % 11.8 % (0.0-10.0); NEUT # 2.2 K/uL (1.8-7.0); NEUT % 50.3 % (50.0-75.0); NRBC % 0.3 % (0.0-2.0); RBC 3.92 Mil/uL (4.40-5.90); RED CELL DISTRIBUTION WIDTH 13.1 % (11.5-14.5); WHITE BLOOD COUNT 4.3 K/uL (4.8-10.8)
[2018-03-01 13:40] LABS: MEAN CELL VOLUME 100.3 fL (80.0-94.0)
--- NOTE | 2018-03-01 13:48 | C.PDOC ---
History Of Present Illness 37 y/o male, w/PMhx of substance abuse, manic bipolar disorder,and homicidal behavior brought to ER by EMS and [employer] for evaluation of suicidal ideation and homicidal ideation. Patient states that he is non- complaint with his medicat ions for his psychiatric illlness. Patient reports that he uses PCP and marijuana daily. He notes that he was released from incarceration 1 month ago. Denies having active physical complaints. Of note, patient has history of multiple admissions for psychiatric illness. Chief Complaint (Nursing): Psychiatric Evaluation History Per: Patient History/Exam Limitations: no limitations Onset/Duration Of Symptoms: Days Current Symptoms Are (Timing): Still Present Severity: Moderate Past Medical History Reviewed: Historical Data, Nursing Documentation, Vital Signs Vital Signs: Last Vital Signs Temp 98.1 F 03/01/18 11:35 Pulse 91 H 03/01/18 11:35 Resp 18 03/01/18 11:35 BP 139/73 03/01/18 11:35 Pulse Ox 98 03/01/18 11:35 - Medical History PMH: Asthma, Bipolar Disorder, Depression, HTN, Schizophrenia, Sleep Apnea Denies: Diabetes, Hepatitis, HIV, Chronic Kidney Disease, Seizures, Sexually Transmitted Disease Other Surgeries: Hx of surgeries - [facility] Procedures GROUP PSYCHOTHERAPY (05/20/15) INDIVIDUAL PSYCHOTHERAPY, SUPPORTIVE (05/20/15) Family History: States: No Known Family Hx - Social History Hx Tobacco Use: Yes Hx Alcohol Use: Yes Hx Substance Use: Yes (PCP) - Immunization History Hx Tetanus Toxoid Vaccination: No Hx Influenza Vaccination: No Hx Pneumococcal Vaccination: No Review Of Systems Except As Marked, All Systems Reviewed And Found Negative. Psych: Positive for: Suicidal ideation, Other (homicidal ideation) Physical Exam - Physical Exam Appears: No Acute Distress Skin: Normal Color, Warm, Dry Head: Atraumatic, Normacephalic Eye(s): bilateral: Normal Inspection Nose: Normal Oral Mucosa: Moist Neck: Supple Chest: Symmetrical Cardiovascular: Rhythm Regular Respiratory: Normal Breath Sounds, No Rales, No Rhonchi, No Wheezing Gastrointestinal/Abdominal: Soft, No Tenderness, No Guarding, No Rebound Neurological/Psych: Oriented x3, Normal Speech, Other (behaving inappropriately) ED Course And Treatment - Laboratory Results Result Diagrams: 03/01/18 13:13 03/01/18 13:13 O2 Sat by Pulse Oximetry: 98 (RA) Pulse Ox Interpretation: Normal Medical Decision Making Medical Decision Making: Plan: --Labs --UA Updates: 13:10 kennel worker Estela discussed case with . Patient has to be medically cleared and screened by [facility]. Estela will call [facility] to file police report for homicidal ideation. [id number] Patient is medically cleared for psychiatric transfer. 17:47 [facility] psychiatrically cleared patient. Estela spoke with Dr.De Alva who stated that patient can be discharged. Disposition Counseled Patient/Family Regarding: Studies Performed, Diagnosis, Need For Followup - Disposition Referrals: [facility] [Outside] [facility] [Outside] Disposition: HOME/ ROUTINE Disposition Time: 17:47 Condition: STABLE Instructions: Polysubstance Abuse (DC) Forms: [facility] (Citizen Of [place]), General Discharge Instructions - Clinical Impression Clinical Impression: Substance induced mood disorder, Polysubstance abuse
[2018-03-01 13:50] LABS: ALB/GLOB RATIO 1.3 (1.0-2.1); ALBUMIN 4.5 g/dL (3.5-5.0); ALT/SGPT 21 U/L (21-72); AST/SGOT 39 U/L (17-59); BLOOD UREA NITROGEN 12 mg/dL (9-20); GFR NON-AFRICAN AMERICAN > 60
[2018-03-01 14:21] LABS: URINE BILIRUBIN NEGATIVE (NEGATIVE); URINE BLOOD NEGATIVE (NEGATIVE); URINE CLARITY Clear (Clear); URINE COLOR Yellow (YELLOW); URINE GLUCOSE (UA) NORMAL (Normal); URINE LEUKOCYTE ESTERASE NEG Leu/uL (Negative); URINE PROTEIN NEGATIVE (NEGATIVE)
[2018-03-01 14:40] LABS: BARBITURATES, UR NEGATIVE (NEGATIVE); BENZODIAZEPINES, UR NEGATIVE (NEGATIVE); OPIATES, UR NEGATIVE (NEGATIVE)
[2018-03-01 15:16] LABS: PHENCYCLIDINE, UR POSITIVE (NEGATIVE)
[2018-03-01 17:00] VITALS: BP 105/70; PULSE 98; TEMP 99.1
[2018-03-01 17:49] VITALS: O2SAT 98
== END 2018-03-01 17:47 | disposition home or self-care (01) ==
LOC: C.ER 11:28
DX: F19.94 Other psychoactive substance use, unspecified with psychoactive substance-induced mood disorder (principal)
CPT/HCPCS: 80053; 81001; 83735; 84100; 85025; 99285; G0480